=== PATIENT | male | born 1960 | race Caucasian/White ===

== ENCOUNTER 2018-10-03 08:22 | Emergency (ER) | payer MEDICAID ==
[~2018-10-03] VITALS: Ht 188 cm; Wt 87.7 kg
[2018-10-03] MEDS ORDERED: ChlordiazePOXIDE HCL 25 MG CAPSULE PO ONE (09:15)
[2018-10-03] MEDS ORDERED: KETOROLAC TROMETHAMINE 60 MG/2 ML VIAL IM ONE (09:15)
[2018-10-03 09:53] VITALS: BP 130/86
== END 2018-10-03 09:58 | disposition home or self-care (01) ==
LOC: EMS 08:25
DX: M54.9 Dorsalgia, unspecified (principal); G89.29 Other chronic pain; F10.20 Alcohol dependence, uncomplicated; Z76.0 Encounter for issue of repeat prescription
CPT/HCPCS: 96372; 99283; J1885

== ENCOUNTER 2018-10-05 19:29 | Emergency (ER) | payer MEDICAID ==
[~2018-10-05] VITALS: Ht 188 cm; Wt 88.6 kg
[2018-10-05] MEDS ORDERED: KETOROLAC TROMETHAMINE 60 MG/2 ML VIAL IM ONE (22:15)
[2018-10-05 22:55] VITALS: BP 134/75
== END 2018-10-05 22:57 | disposition home or self-care (01) ==
LOC: EMS 19:30
DX: G89.29 Other chronic pain (principal); M54.5 Low back pain
CPT/HCPCS: 96372; 99283; J1885

== ENCOUNTER 2018-10-16 14:04 | Emergency (ER) | payer MEDICAID ==
[~2018-10-16] VITALS: Ht 188 cm; Wt 93.2 kg
[2018-10-16] MEDS ORDERED: IBUP-2071 PO (14:53)
[2018-10-16] MEDS ORDERED: METHOCARBAMOL 500 MG TABLET PO ONE (16:30)
[2018-10-16] MEDS ORDERED: KETOROLAC TROMETHAMINE 60 MG/2 ML VIAL IM ONE (16:30)
[2018-10-16 17:11] VITALS: BP 131/73
== END 2018-10-16 17:17 | disposition home or self-care (01) ==
LOC: EMS 14:04
DX: G89.29 Other chronic pain (principal); M54.5 Low back pain; F10.20 Alcohol dependence, uncomplicated
CPT/HCPCS: 96372; 99283; J1885

== ENCOUNTER 2018-10-18 15:37 | Emergency (ER) | payer MEDICAID ==
[~2018-10-18] VITALS: Ht 182.9 cm; Wt 81.8 kg
[~2018-10-18 15:37] MED LIST: IBUP-2071 PO
[2018-10-18] MEDS ORDERED: CYCLOBENZAPRINE HCL 10 MG TABLET PO ONE (17:00)
[2018-10-18] MEDS ORDERED: LIDOCAINE 5% TRANSDERMAL PATCH TD ONE (17:00)
[2018-10-18] MEDS ORDERED: KETOROLAC TROMETHAMINE 30 MG/ML VIAL IM ONE (17:00)
[2018-10-18 17:45] VITALS: BP 153/78
== END 2018-10-18 17:58 | disposition home or self-care (01) ==
LOC: EMS 15:38
DX: M54.5 Low back pain (principal)
CPT/HCPCS: 96372; 99283; J1885

== ENCOUNTER 2018-11-21 08:08 | Emergency (ER) | payer MEDICAID ==
[~2018-11-21] VITALS: Ht 188 cm; Wt 86.4 kg
[2018-11-21] MEDS ORDERED: BACLOFEN 10 MG TABLET PO ONE (09:45)
[2018-11-21 09:55] LABS: BASOPHILS % (AUTO) 1.6 % (0.0-2.0); EOSINOPHILS % (AUTO) 3.2 % (1.0-6.0); HEMATOCRIT 41.3 % (41-53); HEMOGLOBIN 13.8 g/dL (13.5-17.5); MEAN CORPUSCULAR HEMOGLOBIN 33.3 pg (26.0-34.0); MEAN CORPUSCULAR HGB CONC 33.4 G/dL (31.0-37.0); MEAN CORPUSCULAR VOLUME 100 fL (80-100); MONOCYTES # (AUTO) 0.5 K/uL (0.1-1.0); MONOCYTES % (AUTO) 15.2 % (2.0-9.0); NEUTROPHILS # (AUTO) 1.8 K/uL (1.8-7.7); PLATELET COUNT (AUTO) 172 K/uL (150-450); RED BLOOD CELL COUNT(AUTO) 4.15 MIL/uL (4.50-5.90); RED CELL DISTRIBUTION WIDTH 14.8 % (11.5-14.5)
[2018-11-21 09:59] LABS: ANION GAP 11 mmol/L (8-16); CARBON DIOXIDE 30 mmol/L (22-29); CHLORIDE 102 mmol/L (98-107); CREATININE 0.76 mg/dL (0.60-1.30); GLOMERULAR FILTR. RATE CALC > 60 mL/min (>60); GLUCOSE,RANDOM 105 mg/dL (70-110); POTASSIUM 4.5 mmol/L (3.5-5.1); SODIUM SERUM 143 mmol/L (136-145); UREA NITROGEN, BLOOD 8 mg/dL (7-18)
[2018-11-21 10:04] LABS: ALANINE AMINOTRANSFERASE 193 U/L (12-78); ALBUMIN 4.1 g/dL (3.4-5.0); ALKALINE PHOSPHATASE 84 U/L (46-116); ASPARTATE AMINOTRANSFERASE 224 U/L (15-37); BILIRUBIN,TOTAL 0.6 mg/dL (0.1-1.0); TOTAL PROTEIN, SERUM 7.9 g/dL (6.4-8.2)
[2018-11-21 10:36] VITALS: BP 152/95
== END 2018-11-21 11:17 | disposition home or self-care (01) ==
LOC: EMS 08:08
DX: F10.239 Alcohol dependence with withdrawal, unspecified (principal); F10.229 Alcohol dependence with intoxication, unspecified; K70.30 Alcoholic cirrhosis of liver without ascites; G89.29 Other chronic pain; M54.5 Low back pain; Y90.5 Blood alcohol level of 100-119 mg/100 ml
CPT/HCPCS: 36415; 80053; 85025; 99283; G0480

== ENCOUNTER 2018-11-24 07:42 | Emergency (ER) | payer MEDICAID ==
[~2018-11-24] VITALS: Ht 188 cm; Wt 87.3 kg
[2018-11-24 07:53] VITALS: BP 138/92
== END 2018-11-24 08:57 | disposition home or self-care (01) ==
LOC: EMS 07:43
DX: H60.92 Unspecified otitis externa, left ear (principal); J02.9 Acute pharyngitis, unspecified; F10.20 Alcohol dependence, uncomplicated; Z98.890 Other specified postprocedural states

== ENCOUNTER 2018-11-24 16:34 | Emergency (ER) | payer MEDICAID ==
[~2018-11-24] VITALS: Ht 190.5 cm; Wt 86.4 kg
[2018-11-24] MEDS ORDERED: KETOROLAC TROMETHAMINE 30 MG/ML VIAL IM ONE (19:30)
[2018-11-24 21:35] VITALS: BP 140/81
== END 2018-11-24 21:58 | disposition home or self-care (01) ==
LOC: EMS 16:35
DX: S70.02XA Contusion of left hip, initial encounter (principal); G89.29 Other chronic pain; M54.5 Low back pain; F10.20 Alcohol dependence, uncomplicated; Z98.890 Other specified postprocedural states; W18.39XA Other fall on same level, initial encounter; Y93.89 Activity, other specified; Y92.89 Other specified places as the place of occurrence of the external cause; Y99.8 Other external cause status
CPT/HCPCS: 73503; 96372; 99283; J1885

== ENCOUNTER 2018-11-30 23:34 | Emergency (ER) | payer MEDICAID ==
[~2018-11-30] VITALS: Ht 188 cm; Wt 93.6 kg
[2018-12-01 01:57] VITALS: BP 166/87
[2018-12-01] MEDS ORDERED: MORPHINE SULFATE 4 MG/ML SYRINGE IM ONE (02:00)
== END 2018-12-01 02:15 | disposition home or self-care (01) ==
LOC: EMS 23:36
DX: G89.29 Other chronic pain (principal); M54.5 Low back pain
CPT/HCPCS: 96372; 99283; J2270

== ENCOUNTER 2019-01-20 10:08 | Emergency (ER) | payer MEDICAID ==
[~2019-01-20] VITALS: Ht 188 cm; Wt 87.3 kg
[2019-01-20 10:57] VITALS: BP 126/84
[2019-01-20] MEDS ORDERED: ASPI-1192 PO (11:05)
== END 2019-01-20 11:25 | disposition home or self-care (01) ==
LOC: EMS 10:09
DX: Z02.89 Encounter for other administrative examinations (principal)

== ENCOUNTER 2019-01-21 01:57 | Emergency (ER) | payer MEDICAID ==
[~2019-01-21] VITALS: Ht 188 cm; Wt 86.4 kg
[~2019-01-21 01:57] MED LIST changes: +ASPI-1192 PO; -IBUP-2071 PO
[2019-01-21] MEDS ORDERED: PB/HYOSCY/ATR/SCOP/LIDO/MAALOX 55 ML BOTTLE PO ONE (03:00)
[2019-01-21 04:07] VITALS: BP 148/72
== END 2019-01-21 04:09 | disposition home or self-care (01) ==
LOC: EMS 02:04
DX: R07.0 Pain in throat (principal); F10.20 Alcohol dependence, uncomplicated; Z98.890 Other specified postprocedural states; Z79.899 Other long term (current) drug therapy
CPT/HCPCS: 87430

== ENCOUNTER 2019-01-27 20:26 | Emergency (ER) | payer MEDICAID ==
[~2019-01-27] VITALS: Ht 188 cm; Wt 90.9 kg
[2019-01-27] MEDS ORDERED: KETOROLAC TROMETHAMINE 30 MG/ML VIAL IM ONE (21:30)
[2019-01-27] MEDS ORDERED: DIAZEPAM 5 MG/ML 2 ML SYRINGE IM ONE (21:30)
[2019-01-27 21:45] VITALS: BP 130/80
== END 2019-01-27 21:49 | disposition home or self-care (01) ==
LOC: EMS 20:26
DX: M54.5 Low back pain (principal); Z87.891 Personal history of nicotine dependence; Z79.899 Other long term (current) drug therapy
CPT/HCPCS: 96372; 99283; J1885 ×2

== ENCOUNTER 2019-03-25 00:25 | Emergency (ER) | payer MEDICAID ==
[~2019-03-25] VITALS: Ht 188 cm; Wt 87.7 kg
[2019-03-25 01:30] VITALS: BP 122/89
[2019-03-25] MEDS ORDERED: KETOROLAC TROMETHAMINE 60 MG/2 ML VIAL IM ONE (01:30)
[2019-03-25] MEDS ORDERED: HYDROCODONE/ACETAMINOPHEN 5-325 MG TABLET PO ONE (02:45)
== END 2019-03-25 02:45 | disposition home or self-care (01) ==
LOC: EMS 00:27
DX: M54.42 Lumbago with sciatica, left side (principal)
CPT/HCPCS: 96372; 99283; J1885